=== PATIENT | male | born 1970 | race American Indian/Alaskan Native ===

== ENCOUNTER 2020-10-02 07:30 | Day surgery (SDC) | payer OTHER ==
[~2020-10-02] VITALS: Ht 182.9 cm; Wt 93.4 kg
[2020-10-02 08:05] VITALS: BP 123/84
[2020-10-02 14:27] VITALS: BP 120/75
== END 2020-10-02 14:15 | disposition home or self-care (01) ==
LOC: GI 07:30 → OR 13:00 → GI 13:00
PROVIDERS: ATTEND Internal Medicine Gastroenterology
DX: Z12.11 Encounter for screening for malignant neoplasm of colon (principal); K57.30 Diverticulosis of large intestine without perforation or abscess without bleeding; E11.42 Type 2 diabetes mellitus with diabetic polyneuropathy; F32.9 Major depressive disorder, single episode, unspecified; N40.0 Benign prostatic hyperplasia without lower urinary tract symptoms; E78.5 Hyperlipidemia, unspecified; I10 Essential (primary) hypertension; G43.909 Migraine, unspecified, not intractable, without status migrainosus; F43.10 Post-traumatic stress disorder, unspecified; Z79.84 Long term (current) use of oral hypoglycemic drugs; Z98.890 Other specified postprocedural states
CPT/HCPCS: 45378; J1200; J1610; J2250; J2310; J3010; J3490